=== PATIENT | male | born 2000 | race Caucasian/White ===

== ENCOUNTER 2021-06-10 21:40 | Emergency (ER) | payer BC, SELFPAY ==
[2021-06-10 21:49] VITALS: BP 157/99; PULSE 103; RESP 24; TEMP 36.7; O2SAT 98
--- NOTE | 2021-06-10 22:05 | ED_ITS ---
Documented by User: LEXY Brown 06/12/21 02:27 HPI - Abdominal Pain General: Chief Complaint: Abdominal Pain Stated Complaint: Severe abd pain; kidney pain (only 1 kidney) Time Seen by Provider: 06/10/21 22:00 History of Present Illness: HPI narrative: Patient is a 20-year-old male comes to the ED with abdominal pain. 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 Symptoms started approximately an hour before arrival. He was sitting in the car and he felt intense burning pain in his left side of abdomen. He rates the pain currently an 8 out of 10. Pain comes and goes in waves. Pain improves with applying pressure with hand on left side of abdomen. He was feeling some pain also in his right lower back but that resolved before patient arrived to the ED. Denies any fever, chills, nausea or vomiting, bladder or bowel symptoms. Denies any pain like this in the past. Associated Symptoms: Denies chills, constipation, diarrhea, dysuria, fever(s), hematochezia, hematuria, nausea and vomiting Review of Systems Const: Denies: fever(s), chills or fatigue Eyes: Denies: change in vision or eye discomfort ENMT: Denies: throat pain, odynophagia, nasal discharge or nasal congestion Card: Denies: chest pain, palpitations, edema, swelling of feet/ankles, dyspnea on exertion or orthopnea Resp: Denies: dyspnea, productive cough or non-productive cough GI: Reports: abdominal pain (left side); Denies: nausea, vomiting, diarrhea, constipation or hematochezia : Denies: flank pain, difficulty urinating, dysuria or hematuria Musc: Denies: neck pain, back pain or extremity swelling Skin/Breast: Denies: rash or new lesions Neuro: Denies: headache(s), numbness in extremities or weakness in extremities Physical Exam Const: COMMON NORMALS: patient oriented x3 and alert GENERAL APPEARANCE: cooperative and in distress (pt appears in severe pain) HENMT: COMMON NORMALS: normocephalic HEAD & SCALP: normocephalic MOUTH: Normal oral and palatal mucosa present THROAT: posterior oropharynx normal and uvula midline Neck/C-Spine: COMMON NORMALS: supple GENERAL: Yes normal visual inspection Resp: COMMON NORMALS: normal respiratory effort, No retractions, No use of accessory muscles and clear to auscultation bilaterally AUSCULTATION: clear to auscultation bilaterally Cardio: COMMON NORMALS: regular rate, regular rhythm, S1 normal heart sound present, S2 normal heart sound present, No gallops present (Cardio), No clicks present (Cardio), No murmurs present (Cardio) and Peripheral pulses 2+ throughout RATE: regular rate RHYTHM: regular rhythm HEART SOUNDS: S1 normal heart sound present and S2 normal heart sound present PERIPHERAL PULSES: Peripheral pulses 2+ throughout GI: COMMON NORMALS: Normal to inspection, nondistended, normoactive bowel sounds present, Soft to palpation, non-tender and no masses PALPATION: Yes Soft to palpation OTHER: No abdominal tenderness noted. Patient said symptoms improved when applying pressure in the left lower quadrant of abdomen. : COMMON NORMALS: Yes no CVA tenderness BLADDER/KIDNEY EXAM: Yes no CVA tenderness Back/Pelvis: COMMON NORMALS: no CVA tenderness Extremity: COMMON NORMALS: normal to inspection Neuro: COMMON NORMALS: patient oriented x3 SENSORIUM/ORIENTATION: Yes alert GAIT: Yes Normal gait present Skin: GENERAL SKIN EXAM: dry skin Course Vital Signs: Vital signs: Vital Signs Temperature 98.7 F 06/11/21 00:38 Pulse Rate 78 06/11/21 00:38 Respiratory Rate 18 06/11/21 00:38 Blood Pressure 129/80 06/11/21 00:38 Pulse Oximetry 99 06/11/21 00:38 MDM - Abdominal Pain MDM Narrative: Medical decision making narrative: Patient is a 20-year-old male comes to the ED with abdominal pain. Past medical history of being born with one kidney that is on the right. Pain is located in the left side of abdomen patient appeared in acute pain on exam. Onset of pain was within an hour before arrival. Intensity of pain came in in waves. Vitals were stable. No abdominal tenderness noted and he said pain improved with pressure on the abdomen. CBC, CMP, lipase and UA were all unremarkable. CT of abdomen pelvis showed no acute findings. Patient's pain resolved after he was given some morphine. He did not have any recurrence of pain after morphine was given. Patient did say that he was being followed by a pediatric urologist due to his condition at , but now that he is 20 he needs to get set up with a new urologist. I told patient that I will place order with case management for patient to be referred to Dr. Persaud to get established care with him. Patient was diagnosed with abdominal pain and discharged home with a prescription for hydrocodone for any acute pain if needed. He was told to follow-up with his PCP in 7 to 10 days reevaluation. Return ED precautions given. Patient understood for the plan. Lab Data: Attestation: I reviewed the patient's lab results. Labs: Lab Results 06/10/21 06/10/21 06/10/21 22:06 22:06 22:06 WBC 10.1 10^3/uL 10^3 /uL (4.5-13.0) RBC 5.23 10^6/uL 10^6 /uL (4.1-5.3) Hgb 15.7 g/dL g/dL (11.7-16.6) Hct 45.4 % % (42.0-52.0) MCV 86.8 fl fl (80-94) MCH 30.0 pg pg (28.0-34.0) MCHC 34.6 g/dL g/dL (30.0-36.0) RDW 11.4 % L % (12.1-15.1) Plt Count 247 10^3/cmm 10^3 /cmm (130-400) MPV 10.7 fL H fL (7.4-10.4) Neut % (Auto) 57.9 % % Lymph % (Auto) 33.9 % % Dewitt % (Auto) 6.3 % % Eos % (Auto) 1.2 % % Baso % (Auto) 0.5 % % Neut # (Auto) 5.87 10^3/uL 10^3 /uL (1.8-8.0) Lymph # (Auto) 3.4 10^3/uL 10^3/ uL (1.5-6.5) Dewitt # (Auto) 0.6 10^3/uL 10^3/ uL (0.2-0.9) Eos # (Auto) 0.1 10^3/uL 10^3/ uL (0.0-0.8) Baso # (Auto) 0.1 10^3/uL 10^3/ uL (0.0-0.1) Nucleated RBC % (a uto) 0 % % Nucleated RBCs # 0.0 /100WBC /100W BC Sodium 139 mmol/L mmol/L (136-145) Potassium 3.8 mmol/L mmol/L (3.5-5.1) Chloride 100 mmol/L mmol/L (98-107) Carbon Dioxide 21 mmol/L L mmol/ L (22-29) Anion Gap 21.8 H (5-19) BUN 12 mg/dL mg/dL (6-20) Creatinine 0.9 mg/dL mg/dL (0.7-1.2) GFR Calculation 107.6 mL/min mL/m in (90-130) Glucose 66 mg/dL mg/dL (65-115) Calculated Osmolal ity 286 mOsm/kg mOsm/ kg (285-295) Calcium 8.8 mg/dL mg/dL (8.5-10.5) Total Bilirubin 0.4 mg/dL mg/dL (0.15-1.2) AST 19 U/L U/L (0-40) ALT 13 U/L U/L (0-41) Alkaline Phosphata se 84 IU/L IU/L (40-130) Total Protein 7.0 g/dL g/dL (6.6-8.7) Albumin 4.9 g/dL g/dL (3.5-5.2) Globulin 2.1 g/dL g/dL (1.3-4.6) Lipase 46 U/L U/L (13-60) Urine Color Yellow (Yellow) Urine Appearance Clear (CLEAR) Urine pH 6 (5-7) Ur Specific Gravit y 1.010 (1.005-1.030) Urine Protein Neg (Negative) Urine Glucose (UA) Norm (Normal) Urine Ketones Negative (Negative) Urine Blood Neg (Negative) Urine Nitrate Negative (Negative) Urine Bilirubin Neg (Negative) Urine Urobilinogen Norm mg/dL mg/dL (Negative) Ur Leukocyte Lulu ase Negative (Negative) Imaging Data ^: CT Abd/Pel: Attestation: I personally reviewed and interpreted this imaging study as follows: Radiologist's impression: [address] [address] [address] Scan Report Signed Patient: Kirby Martinez Unit #: [id number] : 2000 Age/Sex: 20 / M ADM Date: 06/10/21 Loc: ER Room/Bed: Attending Dr: Ordering Provider/Ordering MD: Ki Smiley Date of Service: 06/10/21 Procedure(s): CT abdomen pelvis w con* [id number] Accession Number(s): [id number] Report Number: [id number] PROCEDURE INFORMATION: Exam: CT Abdomen And Pelvis With Contrast Exam date and time: 06/10/2021 10:28 PM Age: 20 years old Clinical indication: Abdominal pain; Localized; Left lower quadrant (llq); Prior surgery; Surgery date: 6+ months; Patient HX: PT born with 1 kidney; Additional info: Left side abdominal pain-severe burning pain TECHNIQUE: Imaging protocol: Computed tomography of the abdomen and pelvis with contrast. Radiation optimization: All CT scans at this facility use at least one of these dose optimization techniques: automated exposure control; mA and/or kV adjustment per patient size (includes targeted exams where dose is matched to clinical indication); or iterative reconstruction. Contrast material: OMNI 300; Contrast volume: 95 ml; Contrast route: INTRAVENOUS (IV); COMPARISON: No relevant prior studies available. RADIATION DOSE METRICS: Total DLP (mGy-cm): 652.94 FINDINGS: Lungs: The lung bases are clear. No effusion Liver: Normal. No mass. Gallbladder and bile ducts: No wall thickening, pericholecystic fluid or stones. Pancreas: Normal. No ductal dilation. Spleen: Normal. No splenomegaly. Adrenal glands: See Kidneys and ureters finding. 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 Stomach and bowel: Unremarkable. No obstruction. No mucosal thickening. Appendix: No evidence of appendicitis. Intraperitoneal space: Unremarkable. No free air. No significant fluid collection. Vasculature: Unremarkable. No abdominal aortic aneurysm. Lymph nodes: Unremarkable. No enlarged lymph nodes. Urinary bladder: There is mild distention of the urinary bladder with mild right hydronephrosis and hydroureter. Findings can be seen in patients with vesico-ureteral reflux. Reproductive: Unremarkable as visualized. 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 Failure of formation of the distal sacral segments. Soft tissues: Unremarkable. CT/CT abdomen pelvis w con* [id number] IMPRESSION: 1. No cause for acute pain is identified. 2. 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 3. There is mild distention of the urinary bladder with mild right hydronephrosis and hydroureter. Findings can be seen in patients with vesico-ureteral reflux. 4. 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 5. Failure of formation of the distal sacral segments. Dictated By: Mack Bertrand Signed By: Mack Bertrand Signed Date/Time: 06/10/21 5787 DD/ 27 Discharge Plan Discharge Patient Disposition: Home Clinical Impression: Abdominal pain Qualifiers: Abdominal location: periumbilical Qualified Code(s): R10.33 - Periumbilical pain Condition: Stable Discharge Orders: Discharge ED (Routine); Ordered 06/11/21 Ordered By: Ki Smiley Discharge Diet: Regular Discharge Activity: Resume usual activity Patient Instructions: Abdominal Pain (ED), Opioid Safety Activity Restrictions/Additional Instructions: Follow-up with medical provider as directed. Case management should be c ontacting you in the next several days to set up an appointment with Dr. Persaud the urologist. Take medications as prescribed. Return to the ER or your medical provider if condition worsens. Please read and understand discharge instructions. Thank you for choosing [facility] for your healthcare needs today. Please realize this is an emergency room and that we are providing you with a medical screening exam and this may not be complete and all inclusive of all the testing and or work up that you may need to determine your ailment or severity of your illness. It is very important that you follow up as instructed or that you return to the Emergency Department should you have concerns or if your condition changes or worsens in any way. Coding Level of Care Code ED Rf Test Engineer for Chg Fwd Exam Comprehensive Documented by User: Shay Johnson DO 06/12/21 02:43 HPI - Abdominal Pain General: Chief Complaint: Abdominal Pain Stated Complaint: Severe abd pain; kidney pain (only 1 kidney) Time Seen by Provider: 06/10/21 22:00 Course Vital Signs: Vital signs: Vital Signs Temperature 98.7 F 06/11/21 00:38 Pulse Rate 78 06/11/21 00:38 Respiratory Rate 18 06/11/21 00:38 Blood Pressure 129/80 06/11/21 00:38 Pulse Oximetry 99 06/11/21 00:38 MDM - Abdominal Pain MDM Narrative: Medical decision making narrative: This patient was originally seen by Mr. Sherice PA-C. I agree with his history, evaluation, and treatment. Lab Data: Labs: Lab Results 06/10/21 06/10/21 06/10/21 22:06 22:06 22:06 WBC 10.1 10^3/uL 10^3 /uL (4.5-13.0) RBC 5.23 10^6/uL 10^6 /uL (4.1-5.3) Hgb 15.7 g/dL g/dL (11.7-16.6) Hct 45.4 % % (42.0-52.0) MCV 86.8 fl fl (80-94) MCH 30.0 pg pg (28.0-34.0) MCHC 34.6 g/dL g/dL (30.0-36.0) RDW 11.4 % L % (12.1-15.1) Plt Count 247 10^3/cmm 10^3 /cmm (130-400) MPV 10.7 fL H fL (7.4-10.4) Neut % (Auto) 57.9 % % Lymph % (Auto) 33.9 % % Dewitt % (Auto) 6.3 % % Eos % (Auto) 1.2 % % Baso % (Auto) 0.5 % % Neut # (Auto) 5.87 10^3/uL 10^3 /uL (1.8-8.0) Lymph # (Auto) 3.4 10^3/uL 10^3/ uL (1.5-6.5) Dewitt # (Auto) 0.6 10^3/uL 10^3/ uL (0.2-0.9) Eos # (Auto) 0.1 10^3/uL 10^3/ uL (0.0-0.8) Baso # (Auto) 0.1 10^3/uL 10^3/ uL (0.0-0.1) Nucleated RBC % (a uto) 0 % % Nucleated RBCs # 0.0 /100WBC /100W BC Sodium 139 mmol/L mmol/L (136-145) Potassium 3.8 mmol/L mmol/L (3.5-5.1) Chloride 100 mmol/L mmol/L (98-107) Carbon Dioxide 21 mmol/L L mmol/ L (22-29) Anion Gap 21.8 H (5-19) BUN 12 mg/dL mg/dL (6-20) Creatinine 0.9 mg/dL mg/dL (0.7-1.2) GFR Calculation 107.6 mL/min mL/m in (90-130) Glucose 66 mg/dL mg/dL (65-115) Calculated Osmolal ity 286 mOsm/kg mOsm/ kg (285-295) Calcium 8.8 mg/dL mg/dL (8.5-10.5) Total Bilirubin 0.4 mg/dL mg/dL (0.15-1.2) AST 19 U/L U/L (0-40) ALT 13 U/L U/L (0-41) Alkaline Phosphata se 84 IU/L IU/L (40-130) Total Protein 7.0 g/dL g/dL (6.6-8.7) Albumin 4.9 g/dL g/dL (3.5-5.2) Globulin 2.1 g/dL g/dL (1.3-4.6) Lipase 46 U/L U/L (13-60) Urine Color Yellow (Yellow) Urine Appearance Clear (CLEAR) Urine pH 6 (5-7) Ur Specific Gravit y 1.010 (1.005-1.030) Urine Protein Neg (Negative) Urine Glucose (UA) Norm (Normal) Urine Ketones Negative (Negative) Urine Blood Neg (Negative) Urine Nitrate Negative (Negative) Urine Bilirubin Neg (Negative) Urine Urobilinogen Norm mg/dL mg/dL (Negative) Ur Leukocyte Lulu ase Negative (Negative) Discharge Plan Discharge Patient Disposition: Home Clinical Impression: Abdominal pain Qualifiers: Abdominal location: periumbilical Qualified Code(s): R10.33 - Periumbilical pain Condition: Stable Discharge Orders: Discharge ED (Routine); Ordered 06/11/21 Ordered By: Ki Smiley Discharge Diet: Regular Discharge Activity: Resume usual activity Patient Instructions: Abdominal Pain (ED), Opioid Safety Activity Restrictions/Additional Instructions: Follow-up with medical provider as directed. Case management should be contacting you in the next several days to set up an appointment with Dr. Persaud the urologist. Take medications as prescribed. Return to the ER or your medical provider if condition worsens. Please read and understand discharge instructions. Thank you for choosing [facility] for your healthcare needs today. Please realize this is an emergency room and that we are providing you with a medical screening exam and this may not be complete and all inclusive of all the testing and or work up that you may need to determine your ailment or severity of your illness. It is very important that you follow up as instructed or that you return to the Emergency Department should you have concerns or if your condition changes or worsens in any way. Coding Level of Care Code ED Rf Test Engineer for Cory Horta Exam Comprehensive
[2021-06-10 22:15] VITALS: RESP 18
[2021-06-10] MEDS: morphine 4 mg/mL SDV 1 mL IVP (22:15)
[2021-06-10] MEDS: ondansetron 2 mg/ML SDV 2 mL 4 MG IVP (22:15)
[2021-06-10] MEDS: sodium chloride 0.9% 500 ML 999 ML IV (22:17)
[2021-06-10 22:24] LABS: Add Urine Microscopic? NO; Basophils # 0.1 10^3/uL (0.0-0.1); Basophils % 0.5 %; Charge for UA Resulting for Rev; Eosinophils # 0.1 10^3/uL (0.0-0.8); Eosinophils % 1.2 %; Hematocrit 45.4 % (42.0-52.0); Hemoglobin 15.7 g/dL (11.7-16.6); Lymphocytes # 3.4 10^3/uL (1.5-6.5); Lymphocytes % 33.9 %; Mean Corpuscular HGB Conc 34.6 g/dL (30.0-36.0); Mean Corpuscular Volume 86.8 fl (80-94); Mean Platelet Volume 10.7 fL (7.4-10.4); Monocytes # 0.6 10^3/uL (0.2-0.9); Monocytes % 6.3 %; Neutrophils # 5.87 10^3/uL (1.8-8.0); Neutrophils % 57.9 %; Nucleated Red Blood Cells % 0 %; Platelet Count 247 10^3/cmm (130-400); Red Blood Count 5.23 10^6/uL (4.1-5.3); Red Cell Distribution Width 11.4 % (12.1-15.1); White Blood Count 10.1 10^3/uL (4.5-13.0)
--- NOTE | 2021-06-10 22:28 | CTR_ITS ---
PROCEDURE INFORMATION: Exam: CT Abdomen And Pelvis With Contrast Exam date and time: 06/10/2021 10:28 PM Age: 20 years old Clinical indication: Abdominal pain; Localized; Left lower quadrant (llq); Prior surgery; Surgery date: 6+ months; Patient HX: PT born with 1 kidney; Additional info: Left side abdominal pain-severe burning pain TECHNIQUE: Imaging protocol: Computed tomography of the abdomen and pelvis with contrast. Radiation optimization: All CT scans at this facility use at least one of these dose optimization techniques: automated exposure control; mA and/or kV adjustment per patient size (includes targeted exams where dose is matched to clinical indication); or iterative reconstruction. Contrast material: OMNI 300; Contrast volume: 95 ml; Contrast route: INTRAVENOUS (IV); COMPARISON: No relevant prior studies available. RADIATION DOSE METRICS: Total DLP (mGy-cm): 652.94 FINDINGS: Lungs: The lung bases are clear. No effusion Liver: Normal. No mass. Gallbladder and bile ducts: No wall thickening, pericholecystic fluid or stones. Pancreas: Normal. No ductal dilation. Spleen: Normal. No splenomegaly. Adrenal glands: See Kidneys and ureters finding. 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 Stomach and bowel: Unremarkable. No obstruction. No mucosal thickening. Appendix: No evidence of appendicitis. Intraperitoneal space: Unremarkable. No free air. No significant fluid collection. Vasculature: Unremarkable. No abdominal aortic aneurysm. Lymph nodes: Unremarkable. No enlarged lymph nodes. Urinary bladder: There is mild distention of the urinary bladder with mild right hydronephrosis and hydroureter. Findings can be seen in patients with vesico-ureteral reflux. Reproductive: Unremarkable as visualized. 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 Failure of formation of the distal sacral segments. Soft tissues: Unremarkable. CT/CT abdomen pelvis w con* [id number] IMPRESSION: 1. No cause for acute pain is identified. 2. 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 3. There is mild distention of the urinary bladder with mild right hydronephrosis and hydroureter. Findings can be seen in patients with vesico-ureteral reflux. 4. 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 5. Failure of formation of the distal sacral segments.
[2021-06-10 22:31] LABS: Bilirubin Urine Neg (Negative); Blood Urine Neg (Negative); Glucose Urine UA Norm (Normal); Ketones Urine Negative (Negative); Leukocyte Esterase Urine Negative (Negative); Nitrate Urine Negative (Negative); Protein Urine Neg (Negative); Urine Appearance Clear (CLEAR); Urine Color Yellow (Yellow); Urobilinogen Urine Norm (Negative); pH Urine 6 (5-7)
[2021-06-10 22:37] LABS: Alanine Aminotransferase 13 U/L (0-41); Albumin Level 4.9 g/dL (3.5-5.2); Alkaline Phosphatase 84 IU/L (40-130); Anion Gap 21.8 (5-19); Aspartate Amino Transferase 19 U/L (0-40); Blood Urea Nitrogen 12 mg/dL (6-20); Calcium 8.8 mg/dL (8.5-10.5); Carbon Dioxide 21 mmol/L (22-29); Chloride 100 mmol/L (98-107); Globulin 2.1 g/dL (1.3-4.6); Glomerular Filtration Rate 107.6 mL/min (90-130); Glucose 66 mg/dL (65-115); Lipase 46 U/L (13-60); Osmolality Calculated 286 mOsm/kg (285-295); Potassium 3.8 mmol/L (3.5-5.1); Sodium 139 mmol/L (136-145); Total Bilirubin 0.4 mg/dL (0.15-1.2)
[2021-06-10] MEDS: iohexol 300 mg/mL 100 mL Btl IV (22:58)
[2021-06-11 00:38] VITALS: BP 129/80; PULSE 78; RESP 18; TEMP 37.1; O2SAT 99
[2021-06-11] MEDS: HYDROcodone-acetaminophen 7.5-325 mg Tablet 1 TAB PO (00:38)
--- NOTE | 2021-06-11 22:34 | DCPLANNER ---
manager of financial reporting had a message to schedule a follow up appointment for patient with Dr. Persaud. manager of financial reporting sent patients information to Erasmo Katz a message on task manager database administration about referral. Patients information will be printed and reviewed. Clinic will call patient with appointment information.
--- NOTE | 2021-06-16 06:57 | DCPLANNER ---
Addendum entered by Carito Esqueda 08/18/21 11:23: Patient had a follow up appointment scheduled for 08.01.21 - appointment was cancelled. Original Note: Patient has a follow up appointment scheduled for July, at 2:[address] Persaud. Clinic will call patient with appointment information.
== END 2021-06-11 00:40 | disposition home or self-care (01) ==
PROVIDERS: Emergency Provider Physician Assistant
DX: R10.33 Periumbilical pain (principal)
CPT/HCPCS: 74177; 80053; 81003; 83690; 85025; 96374; 96375; 99284; J2270; J2405; J7040; Q9967